=== PATIENT | female | born 1935 | race Caucasian/White ===

== ENCOUNTER 2017-02-22 17:36 | Emergency (ER) | payer OTHER, BC ==
[~2017-02-22] VITALS: Ht 149.9 cm; Wt 56.1 kg
[~2017-02-22 17:36] MED LIST: CENTRUM SILV1 TABLE1 PO; Calcium Carbonate,Ca PO; DIOVAN80 MG PO; LIPITOR20 MG PO; LORTAB 7.5/51 TABLET PO; Miralax, Glycolax PO; Norco 5/325 PO; PARAFON FORTE500 MG PO; PREMARIN0.3 MG PO; Vicodin,Lortab 5/500 PO
[2017-02-22 18:55] LABS: HEMATOCRIT 37.2 % (36.0-46.0); HEMOGLOBIN 12.1 G/DL (11.9-15.5); MCH 29.6 PG (29.0-34.0); MCHC 32.5 G/DL (30.0-36.0); PLATELET COUNT 261 K/uL (156-360); RBC DIS.WIDTH-CV 12.8 % (11.8-14.6); RBC DIS.WIDTH-SD 42.5 % (39-53); RED BLOOD COUNT 4.09 M/uL (3.80-5.20); WHITE BLOOD COUNT 8.1 K/uL (4.1-10.2)
[2017-02-22 19:04] LABS: CHLORIDE 106 mEq/L (99-109); POTASSIUM 4.5 mEq/L (3.7-5.4); SODIUM 142 mEq/L (136-147)
[2017-02-22 19:06] LABS: GLUCOSE 105 mg/dL (70-99)
[2017-02-22 19:10] LABS: CREATININE 1.4 mg/dL (0.6-1.3); GFR ESTIMATE (CALCULATED) 38 mL/min/
[2017-02-22 19:11] LABS: UREA NITROGEN (BUN) 34 mg/dL (9-23)
[2017-02-22 19:15] LABS: TROP-I INTERPRETATION NEGATIVE; TROPONIN-I < 0.01 ng/mL (0.0-0.30)
[2017-02-22] MEDS ORDERED: HYDROCODON-ACE1 EAC7 PO (22:58)
[2017-02-22 23:09] VITALS: BP 159/89
== END 2017-02-22 23:23 | disposition home or self-care (01) ==
LOC: EME 17:36 → EXP 17:36
DX: S20.219A Contusion of unspecified front wall of thorax, initial encounter (principal); W01.198A Fall on same level from slipping, tripping and stumbling with subsequent striking against other object, initial encounter; Y93.89 Activity, other specified; E78.5 Hyperlipidemia, unspecified; I10 Essential (primary) hypertension; Z88.5 Allergy status to narcotic agent
CPT/HCPCS: 71046; 80048; 84484; 85027; 93005; 99281; 99284